=== PATIENT | female | born 1995 | race American Indian/Alaskan Native ===

== ENCOUNTER 2017-04-28 19:18 | Emergency (ER) | payer SELFPAY ==
[2017-04-28 22:13] LABS: Bilirubin,Urine NEG (Negative); Blood,Urine SM (Negative); Ketones,Urine 80 mg/dL (Negative); Leukocyte Esterase,Urine NEG (Negative); Mucus,Urine FEW /HPF; Nitrite,Urine NEG (Negative); Protein,Urine <15 mg/dL mg/dL (Negative); Urobilinogen,Urine < 2.0 mg/dL (<2.0); WBC,Urine < 1.0 /HPF (0.0-6.0)
--- NOTE | 2017-04-28 22:13 | Emergency Department Report ---
ED Female HPI - General Chief complaint: Urogenital-Female Stated complaint: VAGINAL BURNING Time Seen by Provider: 04/28/17 22:12 Source: patient Mode of arrival: Ambulatory Limitations: No Limitations - History of Present Illness Initial comments: This is a 21-year-old female, who was previously unknown to this provider, presents with vaginal itching and pain at the using K-Y jelly for sexual intimacy a few days ago. Positive dysuria. No fevers or chills. No chest pain or shortness of breath. No abdominal pain, no lethargy or irritability. MD Complaint: vaginal bleeding, dysuria -: Gradual Severity: mild Consistency: constant Improves with: none Worsens with: none Are you Now?: No Associated Symptoms: vaginal discharge, dysuria. denies: vaginal bleeding, nausea/vomiting - Related Data Previous Rx's Medication Instructions Recorded Last Taken Type metroNIDAZOLE 0.75% [Vandazole 1 applicator VG QHS #5 tube 04/28/17 Unknown Rx 0.75% VAGINAL] Allergies Allergy/AdvReac Type Severity Reaction Status Date / Time No Known Allergies Allergy Unverified 04/28/17 19:51 ED Review of Systems ROS: Stated complaint: VAGINAL BURNING Other details as noted in HPI Constitutional: denies: fever Eyes: denies: eye discharge ENT: denies: epistaxis Respiratory: denies: cough Cardiovascular: denies: chest pain Gastrointestinal: denies: vomiting Genitourinary: discharge Musculoskeletal: as per HPI Skin: as per HPI Neurological: as per HPI ED Past Medical Hx - Past Medical History Previous Medical History?: No - Surgical History Past Surgical History?: No - Social History Smoking Status: Never Smoker Substance Use Type: None - Medications Home Medications: Home Medications Medication Instructions Recorded Confirmed Last Taken Type metroNIDAZOLE 0.75% [Vandazole 1 applicator VG QHS #5 tube 04/28/17 Unknown Rx 0.75% VAGINAL] ED Physical Exam - General Limitations: No Limitations General appearance: alert, in no apparent distress - Head Head exam: Present: atraumatic, normocephalic - Eye Eye exam: Present: normal appearance, EOMI. Absent: nystagmus - ENT ENT exam: Present: normal exam, normal orophraynx, mucous membranes moist, normal external ear exam - Neck Neck exam: Present: normal inspection, full ROM. Absent: tenderness - Respiratory Respiratory exam: Present: normal lung sounds bilaterally. Absent: respiratory distress, wheezes, rales, rhonchi, stridor, chest wall tenderness, accessory muscle use, decreased breath sounds, prolonged expiratory - Cardiovascular Cardiovascular Exam: Present: regular rate, normal rhythm, normal heart sounds. Absent: bradycardia, tachycardia, irregular rhythm, systolic murmur, diastolic murmur, rubs, gallop - GI/Abdominal GI/Abdominal exam: Present: soft, normal bowel sounds. Absent: distended, tenderness, guarding, rebound, rigid - External exam: Present: normal external exam Speculum exam: Present: normal speculum exam. Absent: cervical discharge, vaginal bleeding Bi-manual exam: Present: normal bi-manual exam, other (escorted by RN Kira Corbett). Absent: cervical motion tendernes, adnexal tenderness, adnexal mass, uterine enlargement, uterine tenderness - Extremities Exam Extremities exam: Present: normal inspection - Back Exam Back exam: Present: normal inspection - Neurological Exam Neurological exam: Present: alert, oriented X3, normal gait, other (Extraocular movements intact. Tongue midline. No facial droop. Facial sensation intact to light touch in the V1, V2, V3 distribution bilaterally. 5 and 5 strength in 4 extremities.. Sensation is intact to light touch in 4 extremities.). Absent : motor sensory deficit - Psychiatric Psychiatric exam: Present: normal affect, normal mood - Skin Skin exam: Present: warm, dry, intact, normal color. Absent: rash ED Course Vital Signs 04/28/17 04/28/17 19:47 23:21 Temperature 98.7 F Pulse Rate 78 79 Respiratory 17 16 Rate Blood Pressure 126/68 Blood Pressure 131/84 [Right] O2 Sat by Pulse 100 98 Oximetry ED Medical Decision Making - Lab Data Vital Signs 04/28/17 19:47 Temperature 98.7 F Pulse Rate 78 Respiratory 17 Rate Blood Pressure 126/68 O2 Sat by Pulse 100 Oximetry - Medical Decision Making Lab Results 04/28/17 Range/Units 21:30 Urine Color Yellow (Yellow) Urine Turbidity Clear (Clear) Urine pH 5.0 (5.0-7.0) Ur Specific [place] 1.023 (1.003-1.030) Urine Protein <15 mg/dl (Negative) mg/dL Urine Glucose (UA) Neg (Negative) mg/dL Urine Ketones 80 (Negative) mg/dL Urine Blood Sm (Negative) Urine Nitrite Neg (Negative) Urine Bilirubin Neg (Negative) Urine Urobilinogen < 2.0 (<2.0) mg/dL Ur Leukocyte Esterase Neg (Negative) Urine WBC (Auto) < 1.0 (0.0-6.0) /HPF Urine RBC (Auto) 4.0 (0.0-6.0) /HPF Urine Mucus Few /HPF Urine HCG, Qual Negative (Negative) Differential diagnosis: Bacterial vaginosis, chemical vaginitis Assessment and plan: 21-year-old female with nonspecific vaginal discomfort in the context of recently using K-Y jelly. The patient is afebrile, with reassuring vital signs, and has an unremarkable physical exam. Wet prep does demonstrate clue cells, therefore patient will be treated empirically with intravaginal metronidazole. She is instructed to seek alternative forms of lubrication for intimacy. Critical care attestation.: If time is entered above; I have spent that time in minutes in the direct care of this critically ill patient, excluding procedure time. ED Disposition Clinical Impression: Vaginitis Disposition: - TO HOME OR SELFCARE Is pt being admited?: No Does the pt Need Aspirin: No Condition: Stable Instructions: Bacterial Vaginosis (ED), Vaginitis (ED) Additional Instructions: Cultures were sent today, results will be available in the next 3-5 days. Have a primary care doctor or it operations analyst contact the medical records department to obtain culture results. Use the metronidazole vaginal antibiotic as directed, did not consume alcohol for the next 7 days. Follow-up with a it operations analyst within the next 2 weeks. I recommend using an alternative form of lubrication next time you engaged in sexual intimacy. Please return to the ER right away with fevers, chills, chest pain, shortness of breath, intractable nausea or vomiting, confusion, inability to tolerate liquid feeds. Prescriptions: metroNIDAZOLE 0.75% [Vandazole 0.75% VAGINAL] 1 applicator VG QHS #5 tube Referrals: PRIMARY CAREMD [Primary Care Provider] - 3-5 Days [facility] [Provider Group] - 3-5 Days [facility] [Provider Group] - 3-5 Days [facility] [Provider Group] - 3-5 Days
[2017-04-28 23:22] VITALS: BP 131/84
== END 2017-04-28 23:21 | disposition home or self-care (01) ==
LOC: ED 19:18
DX: N76.0 Acute vaginitis (principal)
CPT/HCPCS: 81001; 81025; 87086; 87210; 87591

== ENCOUNTER 2018-10-10 05:38 | Day surgery (SDC) | payer OTHER ==
[2018-10-10 06:16] LABS: Basophils % (Auto) 0.5 % (0.0-1.8); Hematocrit 38.8 % (30.3-42.9); Hemoglobin 12.9 gm/dl (10.1-14.3); Lymphocytes # (Auto) 0.9 K/mm3 (1.2-5.4); Lymphocytes % (Auto) 14.7 % (13.4-35.0); Mean Corpuscular HGB Conc 33 % (30-34); Mean Corpuscular Volume 82 fl (79-97); Monocytes # (Auto) 0.4 K/mm3 (0.0-0.8); Monocytes % (Auto) 6.5 % (0.0-7.3); Platelet Count 236 K/mm3 (140-440); Red Blood Count 4.72 M/mm3 (3.65-5.03); Red Cell Distribution Width 12.6 % (13.2-15.2)
[2018-10-10 06:31] LABS: Alanine Aminotransferase 7 units/L (7-56); Albumin 4.3 g/dL (3.9-5); BUN/Creatinine Ratio 10; Blood Urea Nitrogen 6 mg/dL (7-17); Calcium 9.5 mg/dL (8.4-10.2); Hemolysis Index 4
[2018-10-10] MEDS ORDERED: REGLAN PO ONE (07:15)
[2018-10-10] MEDS ORDERED: TYLENOL PO ONE (07:15)
--- NOTE | 2018-10-10 07:18 | Emergency Department Report ---
HPI - General Chief Complaint: Abdominal Pain Time Seen by Provider: 10/10/18 07:07 - [facility] HPI: Room 3 The patient is a 23-year-old female presenting with chief complaint of abdominal pain. The patient states she was in her usual state of health until 03:00 this morning she was awakened by cramping lower abdominal pain. Patient states the pain has been intermittent and associated with nausea vomiting. Patient states she developed some light vaginal bleeding as well. Patient states her last menstrual period occurred August 19 and she is normally regular Location: Pelvic Duration: Intermittent since 03:00 Quality: Cramping Severity: Moderate Modifying factors: [see above] Context: [see above] Mode of transportation: [not driving] ED Past Medical Hx - Past Medical History Previous Medical History?: No - Surgical History Past Surgical History?: No - Family History Family history: no significant - Social History Smoking Status: Never Smoker Substance Use Type: None (denies illicit drug use) - Medications Home Medications: Home Medications Medication Instructions Recorded Confirmed Last Taken Type No Known Home Medications [No 10/10/18 10/10/18 Unknown History Reported Home Medications] ED Review of Systems ROS: Stated complaint: ABD PAIN Other details as noted in HPI Constitutional: no symptoms reported Eyes: denies: eye pain ENT: denies: throat pain Respiratory: no symptoms reported Cardiovascular: denies: chest pain Endocrine: no symptoms reported Gastrointestinal: abdominal pain, nausea, vomiting Genitourinary: abnormal menses Musculoskeletal: denies: back pain Neurological: denies: headache Physical Exam - Physical Exam Vital Signs: Vital Signs 10/10/18 10/10/18 10/10/18 05:51 06:30 06:38 Temperature 100.3 F H Pulse Rate 79 Respiratory 18 16 Rate Blood Pressure 113/73 Blood Pressure 113/73 [Left] O2 Sat by Pulse 100 100 99 Oximetry Physical Exam: GENERAL: The patient is well-developed well-nourished female lying on stretcher not appearing to be in acute distress. [] HEENT: Normocephalic. Atraumatic. Extraocular motions are intact. Patient has moist mucous membranes. NECK: Supple. Trachea midline CHEST/LUNGS: Clear to auscultation. There is no respiratory distress noted. HEART/CARDIOVASCULAR: Regular. There is no tachycardia. There is no gallop rub or murmur. ABDOMEN: Abdomen is soft, with diffuse discomfort to palpation. There is no rebound or guarding. Patient has normal bowel sounds. There is no abdominal distention. SKIN: There is no rash. There is no edema. There is no diaphoresis. NEURO: The patient is awake, alert, and oriented. The patient is cooperative. The patient has normal speech MUSCULOSKELETAL: There is no evidence of acute injury. ED Course Vital Signs 10/10/18 10/10/18 10/10/18 05:51 06:30 06:38 Temperature 100.3 F H Pulse Rate 79 Respiratory 18 16 Rate Blood Pressure 113/73 Blood Pressure 113/73 [Left] O2 Sat by Pulse 100 100 99 Oximetry - Consultations Consultation #1: 10/10/18 10:55 JIG BUILDER paged 10/10/18 11:[address] Dyer- Will evaluate ED Medical Decision Making - Lab Data Result diagrams: 10/10/18 05:58 10/10/18 05:58 - Differential Diagnosis threatened , spontaneous , incomplete , ectopic pre Critical care attestation.: If time is entered above; I have spent that time in minutes in the direct care of this critically ill patient, excluding procedure time. ED Disposition Clinical Impression: Ectopic , Acute pelvic pain Disposition: -09 OP ADMIT IP TO THIS HOSP Is pt being admited?: Yes Does the pt Need Aspirin: No Condition: Fair Instructions: Abdominal Pain (ED) Referrals: FLORINA GIRALDO MD [Primary Care Provider] - 3-5 Days Time of Disposition: 12:28
--- NOTE | 2018-10-10 10:57 | Ultrasound Report ---
PROCEDURE: US OB <= 14 WEEKS FETUS, US OB TRANSVAGINAL TECHNIQUE: Transabdominal and transvaginal OB ultrasound. HISTORY: lower abdominal pain, vaginal bleeding, COMPARISONS: None currently available. FINDINGS: Uterus: 8.7 x 4.2 x 4.7 cm. Endometrial complex is heterogeneously thickened measuring 13.8 mm. No ge stational sac. Right ovary: 2.2 x 1.1 x 1.7 cm. Within normal limits. Ovarian flow identified. Left Ovary: 2.2 x 1.4 x 1.7 cm. Within normal limits. Ovarian flow identified. Adnexa: Dilated heterogeneous tubular structure in the left adnexa. Minimal free fluid. IMPRESSION: * Dilated diffuse tubular structure in the left adnexa may represent a hydrosalpinx, pyosalpinx, blo od, and/or ectopic . Findings are suspicious for ectopic with blood. Please correlate clinic ally. * Minimal free fluid in the cul-de-sac. * Thickened heterogeneously echogenic endometrial complex. No intrauterine . * 10/10/2018 at 0754 PST: I, Elvis Avina MD, discussed the findings over the phone with Dr. Badillo. This document is electronically signed by Elvis Avina MD., October 10 2018 10:55:12 AM ET
[2018-10-10] MEDS ORDERED: NACL 0.9% 1000 ML 1,000 ML IV ONE (11:03)
--- NOTE | 2018-10-10 12:50 | History and Physical Report ---
History of Present Illness Chief complaint: abdominal pain History of present illness: 23yo LMP 08/19/18 presents with abdominal pain, vaginal bleeding x 1 day and US findings of left dilated fallopian tube suggestive of ectopic , pyosalpinx, hydrosalpinx. Due to current beta HCG 38, 381K suspect ectopic . She denies any headache, lightheadeded, dizziness of syncope. She had a recent elective with D&C in June 2018. Past History Past Surgical History: D&C Family/Genetic History: none Social history: single, other (lives with boyfriend) - Obstetrical History : 2 Induced : 1 Number of Living Children: 0 Medications and Allergies Allergies Allergy/AdvReac Type Severity Reaction Status Date / Time No Known Allergies Allergy Verified 10/10/18 05:45 Home Medications Medication Instructions Recorded Confirmed Last Taken Type No Known Home Medications [No 10/10/18 10/10/18 Unknown History Reported Home Medications] Review of Systems Gastrointestinal: abdominal pain Genitourinary: vaginal bleeding - Vital Signs Vital signs: Vital Signs Temp Pulse Resp BP Pulse Ox 100.3 F H 79 18 113/73 100 10/10/18 05:51 10/10/18 05:51 10/10/18 05:51 10/10/18 05:51 10/10/18 05:51 Temp Pulse Resp BP Pulse Ox 100.3 F H 79 18 110/81 100 10/10/18 05:51 10/10/18 05:51 10/10/18 08:31 10/10/18 09:28 10/10/18 07:30 - Physical Exam Abdomen: Positive: soft Results Result Diagrams: 10/10/18 05:58 10/10/18 05:58 Abnormal lab results 10/10/18 10/10/18 10/10/18 Range/Units 05:58 05:58 05:58 MCH 27 L (28-32) pg RDW 12.6 L (13.2-15.2) % Lymph # 0.9 L (1.2-5.4) K/mm3 Seg Neutrophils % 78.3 H (40.0-70.0) % Sodium 132 L (137-145) mmol/L Chloride 96.5 L (98-107) mmol/L BUN 6 L (7-17) mg/dL Creatinine 0.6 L (0.7-1.2) mg/dL HCG, Quant 00862 H (0-4) mIU/mL All other labs normal. Assessment and Plan - Patient Problems (1) Acute pelvic pain Status: Acute (2) Ectopic Status: Acute Plan to address problem: Ultrasound findings of no intrauterine and betaHCG 38,381K and left adnexal mass suggestive of ectopic . Risk, benefits and alternatives to diagnostic laparoscopy discussed for ectopic and surgical exploration. Informed consent signed.
[2018-10-10] MEDS ORDERED: DIPRIVAN 10 MG/ML IV ONE (13:46)
[2018-10-10] MEDS ORDERED: XYLOCAINE MPF 2% ONE (13:46)
[2018-10-10] MEDS ORDERED: SUBLIMAZE ONE (13:46)
[2018-10-10] MEDS ORDERED: QUELICIN ONE (13:48)
[2018-10-10] MEDS ORDERED: ZEMURON IV ONE (13:48)
[2018-10-10] MEDS ORDERED: ANCEF/STERILE WATER 2 GM/20 ML 2 GM/20 ML SYRINGE IV ONE (14:11)
[2018-10-10] MEDS ORDERED: DECADRON ONE (14:30)
[2018-10-10] MEDS ORDERED: ZOFRAN ONE (14:30)
[2018-10-10] MEDS ORDERED: ROBINUL ONE (14:45)
[2018-10-10] MEDS ORDERED: BLOXIVERZ ONE (14:45)
[2018-10-10] MEDS ORDERED: MARCAINE 0.5% INFILTRATI ONE (16:41)
--- NOTE | 2018-10-10 17:31 | Operative Report ---
Operative Report Operative Report: PRE-OP Diagnosis 1. Ectopic 2. Free pelvic fluid POST-OP Diagnosis 1. Incomplete 2. Physiologic peritoneal fluid Procedure 1. Diagnostic laparoscopy 2. Suction D&C 3. Intraoperative transvaginal US Surgeon: Dr. Cathy Dyer Findings 1. Anteverted 8wk uterus 2. Normal uterus, bilateral tubes and ovaries 3. Small amount of peritoneal fluid 4. Intrauterine products suggestive of incomplete . I/O EBL <25ml Specimens removed 1. Intrauterine products of conception Anesthesia: General DISPOSITION: Patient extubated and transported to OR in stable condition. INDICTATIONS: 23yo presents to ER with abdominal pain and vaginal bleeding with betaHCG >38K. An ultrasound reveals a left adnexal mass and no intrauterine . Decision was made to proceed to diagnostic laparoscopy to rule out and/or identify an ectopic . The risks including but not limited to bleeding, infection, injury to surrounding organs such as bowel, bladder, blood vessels, possible uterine perforation and potential reduced fertility were discussed. The patient was told that one ectopic increases the risk of future ectopic pregnancies. Alternatives and benefits were discussed and informed consent signed. PROCEDURE: The patient was taken to the Main OR in stable condition and placed in the supine position. In anticipation of a possible exploratory laparotomy the patient received Ancef 2g IV. Adequate anesthesia was achieved. SCDs were placed. She was placed in the dorsal lithotomy position in Kiet stirrups and prepped and draped in a sterile fashion. A time out was done. The bladder was drained with a red rubber. Attention was turned to the perineum and a sterile speculum was placed per vagina. A single-toothed tenaculum was placed on the anterior lip of the cervix. A sharp curettage was done. Products were suspended in water. No gross evidence of chorionic villi visualized. A balloon uterine manipulator was placed into the uterus. The speculum and tenaculum were removed. Attention was then turned to the abdomen where an infraumbilical incision was made with the scalpel. A 5mm Applied FiOs trocar was then placed through the incision under direct visualization. Entry into the peritoneum was achieved with opening pressure of 5 mmHg. The abdomen was insufflated with adequate CO2 gas. An intraabdominal survey revealed. No adnexal mass and no pathologic findings were found. The radiology report was reviewed and the radiologist was contacted via phone to further detail his findings but the phone was unable to maintain connection. Endometrial currettings for frozen section collected however pathologist called to state frozen section machine not functioning. Radiology was called for an intra-op ultrasound. The ultrasound revealed no intrauterine products but thickened endometrium with some blood flow. The decision was then made to re-draw thebetaHCG after D&C. The betaHCG was noted to decrease from 38K-->14K therefore clinical impression that the positive test and thickened endometrium was in fact due to an incomplete . The CO2 pressures were decreased and patient taken out of Trendelenburg. No bleeding was noted. The trocars were then removed from the abdomen under direct visualization and CO2 gas was freed from the abdomen. The balloon manipulator was removed and A suction D&C was done, products of conception seen and sent to pathology for review. The abdominal incisions were closed with 4-0 Vicryl and dermabond. All counts were correct x 3. Patient was awakened from anesthesia in stable condition and transported to the PACU. I was present and scrubbed for the entire procedure.
--- NOTE | 2018-10-10 18:22 | Anesthesia Day of Surgery ---
Anesthesia Day of Surgery - Day of Surgery Patient Examined: Yes Patient H&P Reviewed: Yes Patient is NPO: Yes
--- NOTE | 2018-10-10 18:23 | Post Anesthesia Evaluation ---
- Post Anesthesia Evaluation Patient Participated: Yes Airway Patent: Yes Stable Respiratory Function: Yes Nausea/Vomiting: No Temp > 96.8F: Yes Pain Manageable: Yes Adequeate Hydration: Yes Anesthesia Complications: No Block Receding Appropriately: Not Applicable Patient on Ventilator: No
--- NOTE | 2018-10-10 18:23 | Anesthesia Consultation ---
Anesthesia Consult and Med Hx Date of service: 10/10/18 - Airway Anesthetic Teeth Evaluation: Good ROM Head & Neck: Adequate Mental/Hyoid Distance: Adequate Mallampati Class: Class II Intubation Access Assessment: Good - Pre-Operative Health Status ASA Pre-Surgery Classification: ASA2, Emergency Proposed Anesthetic Plan: General
--- NOTE | 2018-10-10 20:14 | Ultrasound Report ---
PROCEDURE: US GUIDE INTRAOPERATIVE TECHNIQUE: Real-time transvaginal sonography in multiple planes of the pelvis was performed with bella ge documentation. HISTORY: ECTOPIC COMPARISONS: None . FINDINGS: No evidence of intrauterine or ectopic identified. IMPRESSION: Normal Examination. This document is electronically signed by Steffen Powell MD., October 10 2018 08:12:44 PM ET
[2018-10-10 21:10] VITALS: BP 117/74
== END 2018-10-10 18:02 | disposition home or self-care (01) ==
LOC: ED 05:38 → OR 18:01
PROVIDERS: ATTEND Obstetrics & Gynecology
DX: O03.4 Incomplete spontaneous abortion without complication (principal); Z79.899 Other long term (current) drug therapy
CPT/HCPCS: 36415; 59812; 76801; 76817; 76998; 80053; 84702; 84703; 85025; 86900; 86901; 88305; J0330; J0690; J1100; J2405; J2704; J2710; J3010; J7030